=== PATIENT | male | born 1995 | race Caucasian/White ===

== ENCOUNTER 2016-08-19 21:19 | Emergency (ER) ==
[2016-08-19 21:26] VITALS: BP 131/86
[2016-08-19] MEDS ORDERED: ATIVAN IM ONE (23:02)
--- NOTE | 2016-08-19 23:09 | PROVIDER DOCUMENTATION ---
HPI-General Adult - General Chief Complaint: Anxiety Stated Complaint: GENERAL, "HEART HURTS" Time Seen by Provider: 08/19/16 22:56 Source: patient Allergies/Adverse Reactions: Patient Allergies Allergy/AdvReac Type Severity Reaction Status Date / Time No Known Allergies Allergy Verified 08/19/16 21:30 Home Medications: Home Medication List Medication Instructions Recorded Confirmed Last Taken Type No Home Medications 08/19/16 08/19/16 Unknown History - History of Present Illness -Gen Adult Nature of Presenting Problems: Pt. is 20 yom that presents with c/o hurting in his heart. Pt. reports he has never been diagnosed with anxiety, but thinks he has it. Pt. denies any N/V or fever. Pt. states no SOB but reports he is taking deep breaths. Location of Pain/Injury: reports: chest. denies: head, face, mouth, neck, upper extremity, hand(s), abdomen, back, pelvis, genitalia, lower extremity, feet, upper body, lower body, generalized Pain Radiation: reports: no radiation Quality of Pain: reports: aching. denies: burning, cramping, dull, fullness, indigestion, pressure, sharp, stabbing, tearing, throbbing, tightness Severity: reports: moderate. denies: mild, severe Onset/Duration: reports: gradual Timing: reports: still present. denies: improving, gone now, resolved prior to arrival, intermittent, constant, changing over time, getting worse Context/Activities at Onset: reports: none. denies: recent emotional stress, recent physical stress, recent trauma history, possible bad food, cold exposure , out of country travel Modifying Factors: improves with: nothing Associated Symptoms: reports: anxiety, chest pain. denies: arm pain, back/neck pain, constipation, cough, diaphoresis, diarrhea, dizziness, EENT symptoms, fatigue, fever/chills, genitourinary problems, headaches, heartburn, joint pain , loss of appetite, malaise, muscle aches, sinus congestion/drainage, nausea, rash, seizure, shortness of breath, sensory/motor loss, pain with inspiration, swelling/mass in abdomen, syncope, vomiting, weakness, trouble walking Similar Symptoms Previously?: Yes Recently seen or treated by another doctor?: No Review of Systems - Adult - REVIEW OF SYSTEMS - ADULT Constitutional: reports: see HPI. denies: chills, fever, fatique Eyes: reports: see HPI. denies: discharge, blurred vision, double vision Ears, Nose, Mouth & Throat: reports: see HPI. denies: ear pain, hearing loss, sinus problem, nose pain, loose teeth, mouth/dental pain, throat pain, throat swelling Cardiovascular: reports: see HPI. denies: chest pain, irregular heart rate, orthopnea, syncope Respiratory: reports: see HPI, other (hyperventilation). denies: chronic cough , cough, dyspnea on exertion, pleurisy, shortness of breath, wheezing Gastrointestinal: reports: see HPI. denies: abdominal pain, hematemesis, diarrhea, nausea, vomiting Genitourinary: reports: see HPI. denies: dysuria, discharge, hematuria, hesitency, urgency Musculoskeletal: reports: see HPI. denies: bone pain, back pain, joint pain, joint swelling, muscle aches, neck pain Integumentary: reports: see HPI. denies: hives, itching, rash, skin thickening Neurological: reports: see HPI. denies: ataxia, dizziness/vertigo, headache/ migraines, numbness, seizure, tremors Psychiatric: reports: see HPI, anxiety. denies: depression, emotional problems , insomnia, panic attacks, suicidal thoughts Past History - Adult - PAST MEDICAL HISTORY-ADULT Review of Records: reports: Old Records Reviewed, Nursing Assessment Review, Medications Reviewed, Social history reviewed & non-contributory. - IMMUNIZATION STATUS Childhood Immunizations: See Nurse Assessment Flu Vaccine: See Nurse Assessment - FAMILY HISTORY Family History: reviewed, not pertinent - SOCIAL HISTORY Smoking: cigarettes, greater than 1 pack/day Provider spent 3-5 mins advising pt. on dangers of tobacco.: Discussed the need to stop smoking. Physical Exam-General - PHYSICAL EXAM-ADULT Initial Vital Signs Reviewed: Yes - CONSTITUTIONAL General Appearance: alert, mild distress, thin. negative: obese, anxious, lethargic, slow to respond, obtunded, combative - EYES Eyes: PERRL/EOMI, pink conjunctivae. negative: conjuctival exudate, scleral icterus, subconjunctival hemorrhage - HEAD, EARS, NOSE, MOUTH & THROAT HENMT: normocephalic/atraumatic, moist mucous membranes. negative: angioedema, frontal tenderness, maxillary tenderness - NECK Neck: non-tender, full range of motion, supple, normal inspection. negative: lymphadenopathy, trachial deviation, thyromegaly - RESPIRATORY Respiratory: lungs clear, normal breath sounds, increased rate. negative: crackles, rales, rhonchi, stridor, wheezing - CARDIOVASCULAR Cardiovascular: normal peripheral pulses, regular rate, rhythm, no edema, no JVD , no murmur. negative: extra beats, friction rub, irregularly irregular - CHEST (BREASTS) Chest/Breast: deferred - GASTROINTESTINAL (ABDOMEN) Abdominal Exam: normal bowel sounds, non tender, soft. negative: distended, guarding, rigid, rebound, tenderness, hernia, mass - GENITOURINARY Male Genitalia: deferred Rectal Exam: deferred Hemoccult Exam: deferred - LYMPHATIC Lymphatic: no adenopathy. negative: axilla node tender, cervical node tenderness - MUSCULOSKELETAL Back Exam: normal inspection, no CVA tenderness, no vertebral tenderness. negative: ecchymosis, swelling, vertebral tenderness Extremity: normal range of motion, non-tender, normal gait, normal inspection. negative: deformity, erythema, inflammation, swelling, tenderness Peripheral Pulses: radial (R): 2+, radial (L): 2+ - SKIN Integumentary: normal color, normal turgor, warm/dry. negative: cyanosis, diaphoresis, ecchymosis, erythema, jaundice, mottled, pallor, petechiae, purpura , rash, swelling, tenderness - NEUROLOGIC Neurologic: grossly normal, no motor/sensory deficits. negative: aphasia, facial droop, focal weakness, motor weakness, sensory deficit - PSYCHIATRIC Psych/Mental Status: normal mood/affect, normal thought content, normal thought process, oriented x 3, anxious, tearful. negative: paranoid Progress - PLAN OF CARE/RESULTS Progress/Plan/Lab Results: Pt. decided he wanted to leave and states he is going to [place]. The patient left the building. Vital Signs Temp Pulse Resp BP Pulse Ox 08/19/16 21:22 97.7 F 88 18 131/86 100 No Known Allergies Allergy (Verified 08/19/16 21:30) No Home Medications 08/19/16 Orders Category Date Time Status Lorazepam [Ativan] Med 08/19/16 23:02 Discontinued 2 mg IM NOW ONE Departure - Departure Time of Disposition Order: 23:14 DIAGNOSIS: Anxiety Disposition: ELOPEMENT 07 Certified Medical Emergency: Emergent Condition: Stable Referrals: None,PCP [Primary Care Provider] - Attestation - Physician/ DIANE Attestation Patient care was provided by Advanced Practice Provider:: Yes Advanced Practice Provider:: Carlene Chamorro Advanced Practice Provider documentation review:: The Mid-level provider documentation, treatment plan and medical decision making was reviewed by the physician who agrees with all treatment and medical decision making by the MLP.
== END 2016-08-19 23:16 | disposition left against medical advice (07) ==
LOC: ED 21:19
DX: F41.9 Anxiety disorder, unspecified (principal); R07.9 Chest pain, unspecified; R06.4 Hyperventilation; F17.210 Nicotine dependence, cigarettes, uncomplicated; Z71.6 Tobacco abuse counseling

== ENCOUNTER 2016-08-19 23:30 | Emergency (ER) ==
[2016-08-20 00:43] LABS: UR AMPHETAMINES QUAL NONE DETECTED (NONE DETECT); UR BARBITUATES QUAL NONE DETECTED (NONE DETECT); UR BENZODIAZEPIN QUAL NONE DETECTED (NONE DETECT); UR CANNABINOIDS QUAL NONE DETECTED (NONE DETECT); UR COCAINE QUAL NONE DETECTED (NONE DETECT); UR MDMA QUAL NONE DETECTED (NONE DETECT); UR METHADONE QUAL NONE DETECTED (NONE DETECT); UR METHAMPHETAMINE QUAL NONE DETECTED (NONE DETECT); UR OPIATES QUAL NONE DETECTED (NONE DETECT); UR OXYCODONE QUAL NONE DETECTED (NONE DETECT); UR PCP QUAL NONE DETECTED (NONE DETECT); UR TCA QUAL NONE DETECTED (NONE DETECT)
[2016-08-20] MEDS ORDERED: ASPIRIN PO STA (00:50)
--- NOTE | 2016-08-20 01:03 | PROVIDER DOCUMENTATION ---
HPI-Chest Pain <Mario Sawyer - Last Filed: 08/20/16 01:41> - General Source: patient, family <Diamond Bauer - Last Filed: 08/22/16 16:49> - General Chief Complaint: Chest Pain Stated Complaint: CHEST PAIN,DIZZY Time Seen by Provider: 08/19/16 23:47 Allergies/Adverse Reactions: Patient Allergies Allergy/AdvReac Type Severity Reaction Status Date / Time No Known Allergies Allergy Verified 08/19/16 21:30 Home Medications: Home Medication List Medication Instructions Recorded Confirmed Last Taken Type Acetaminophen/Diphenhydramine 1 each PO Q6H PRN PRN #14 tablet 08/20/16 Unknown Rx [Percogesic Extra Str Caplet] - History of Present Illness-CP Nature of Presenting Problem: 20 y/o WM presents to ED with c/o CP x 4 hours. Pt states started at home while sleeping. Reports CP in L anterior chest. Denies any SOB, radiation, numbness/tingling. Denies any medications given at home, hx of cardiac problems , recent URI, positional discomfort. States hx of anxiety. Denies any N/V/D/C , abd. pain. Was at ED, but after 2 hours, came here. (Diamond Bauer ) Review of Systems - Adult - REVIEW OF SYSTEMS - ADULT Constitutional: reports: no symptoms reported. denies: chills, fever Eyes: reports: no symptoms reported. denies: blurred vision, double vision Ears, Nose, Mouth & Throat: reports: no symptoms reported. denies: ear pain, nose pain Cardiovascular: reports: see HPI, chest pain. denies: palpitations Respiratory: reports: no symptoms reported. denies: dyspnea on exertion, shortness of breath Gastrointestinal: reports: no symptoms reported. denies: abdominal pain, nausea , vomiting Genitourinary: reports: no symptoms reported. denies: dysuria, frequency Musculoskeletal: reports: no symptoms reported. denies: joint pain, joint swelling Integumentary: reports: no symptoms reported. denies: nail changes, rash Neurological: reports: no symptoms reported. denies: numbness, paresthesia Psychiatric: reports: no symptoms reported Endocrine: reports: no symptoms reported. denies: cold intolerance, heat intolerance Hematologic/Lymphatic: reports: no symptoms reported. denies: easy bruising, prolonged bleeding Allergic/Immunologic: reports: no symptoms reported All Other Systems: Reviewed and Negative <Diamond Bauer. - Last Filed: 08/22/16 16:49> Past History - Adult - PAST MEDICAL HISTORY-ADULT Review of Records: reports: Nursing Assessment Review, Medications Reviewed - IMMUNIZATION STATUS Childhood Immunizations: See Nurse Assessment Flu Vaccine: See Nurse Assessment - FAMILY HISTORY Family History: reviewed, not pertinent <Diamond Bauer. - Last Filed: 08/22/16 16:49> Physical Exam-General - PHYSICAL EXAM-ADULT Initial Vital Signs Reviewed: Yes - CONSTITUTIONAL General Appearance: alert, mild distress, thin - EYES Eyes: pink conjunctivae - HEAD, EARS, NOSE, MOUTH & THROAT HENMT: normocephalic/atraumatic, moist mucous membranes - NECK Neck: normal inspection - RESPIRATORY Respiratory: chest non-tender, lungs clear, normal breath sounds, no respiratory distress, no accessory muscle use. negative: crackles, rales, rhonchi, stridor, wheezing, pain on inspiration, decreased rate, increased rate - CARDIOVASCULAR Cardiovascular: regular rate, rhythm. negative: bradycardia, tachycardia - GASTROINTESTINAL (ABDOMEN) Abdominal Exam: normal bowel sounds, non tender, soft. negative: distended, guarding, rigid, rebound - MUSCULOSKELETAL Back Exam: normal inspection Extremity: normal gait - SKIN Integumentary: normal color, normal turgor, warm/dry, rash (noted to anterior chest and neck; appears fungal in nature.) - NEUROLOGIC Neurologic: negative: aphasia, motor weakness, sensory deficit - PSYCHIATRIC Psych/Mental Status: normal mood/affect, normal thought content, normal thought process, oriented x 3 <Diamond Bauer. - Last Filed: 08/22/16 16:49> Progress - EKG 1 Time of EKG reading by physician:: 00:18 EKG Read and Signed by:: Paramjit Cruz EKG Interpretation (*Must complete 3 of following elements*): Abnormal Rate: 58 Rhythm: SINUS BRADYCARDIA [place]: right QRS: normal NH Interval: normal <Mario Sawyer - Last Filed: 08/20/16 01:41> - XRAY 1 XRAY Study: Chest Impression: Normal XRAY Interpretation: No acute findings <Diamond Bauer. - Last Filed: 08/22/16 16:49> - PLAN OF CARE/RESULTS Progress/Plan/Lab Results: Laboratory Tests 08/19/16 08/20/16 08/20/16 23:55 01:05 01:05 WBC RBC Hgb Hct MCV MCH MCHC RDW Std Deviation Plt Count MPV Immature Gran % (Auto) Neut % (Auto) Lymph % (Auto) [place] % (Auto) Eos % (Auto) Baso % (Auto) Immature Gran # (Auto) Neut # (Auto) Lymph # (Auto) [place] # (Auto) Eos # (Auto) Baso # (Auto) PT INR APTT (Factor Assay) Sodium 141 Potassium 3.6 Chloride 103 Carbon Dioxide 26 Anion Gap 12 BUN 8 Creatinine 0.7 Estimated GFR/1.73 m2 > 60 BUN/Creatinine Ratio 11 Glucose 101 Calculated Osmolality 280 Calcium 9.2 Magnesium 1.8 Total Bilirubin 0.60 AST 21 ALT 12 Alkaline Phosphatase 73 Creatine Kinase 185 Troponin T < 0.010 [id number]-[id number] Pept Total Protein 6.9 Albumin 4.8 Globulin 2.0 Albumin/Globulin Ratio 2.0 Urine Opiates Screen NONE DETECTED Ur Oxycodone Screen NONE DETECTED Urine Methadone Screen NONE DETECTED Ur Barbituates Screen NONE DETECTED Ur Tricyclics Screen NONE DETECTED Ur Phencyclidine Scrn NONE DETECTED Ur Amphetamines Screen NONE DETECTED U Methamphetamines Scrn NONE DETECTED Urine MDMA Screen NONE DETECTED U Benzodiazepines Scrn NONE DETECTED Urine Cocaine Screen NONE DETECTED U Cannabinoids Screen NONE DETECTED 08/20/16 08/20/16 08/20/16 01:05 01:05 01:05 WBC 6.05 RBC 4.47 L Hgb 14.7 Hct 40.7 L MCV 91.1 MCH 32.9 H MCHC 36.1 RDW Std Deviation 11.9 Plt Count 230 MPV 9.5 Immature Gran % (Auto) 0.2 Neut % (Auto) 51.5 Lymph % (Auto) 37.4 [place] % (Auto) 7.9 Eos % (Auto) 2.5 Baso % (Auto) 0.5 Immature Gran # (Auto) 0.01 Neut # (Auto) 3.12 Lymph # (Auto) 2.26 [place] # (Auto) 0.48 Eos # (Auto) 0.15 Baso # (Auto) 0.03 PT 13.3 INR 0.98 APTT (Factor Assay) 28.7 Sodium Potassium Chloride Carbon Dioxide Anion Gap BUN Creatinine Estimated GFR/1.73 m2 BUN/Creatinine Ratio Glucose Calculated Osmolality Calcium Magnesium Total Bilirubin AST ALT Alkaline Phosphatase Creatine Kinase Troponin T [id number]-Mfvznjonrbm Pept 12 Total Protein Albumin Globulin Albumin/Globulin Ratio Urine Opiates Screen Ur Oxycodone Screen Urine Methadone Screen Ur Barbituates Screen Ur Tricyclics Screen Ur Phencyclidine Scrn Ur Amphetamines Screen U Methamphetamines Scrn Urine MDMA Screen U Benzodiazepines Scrn Urine Cocaine Screen U Cannabinoids Screen Orders Category Date Time Status CHEST-2 VIEWS [RAD] Stat Exams 08/20/16 00:00 Completed CBC WITH ELECTRONIC DIFF [HEME] Stat Lab 08/20/16 01:05 Completed CK PROFILE [SP CHEM] Stat Lab 08/20/16 01:05 Completed COMPREHENSIVE METABOLIC PANEL [CHEM] Stat Lab 08/20/16 01:05 Completed MAGNESIUM [CHEM] Stat Lab 08/20/16 01:05 Completed PRO B-NATRIURETIC PEPTIDE Stat Lab 08/20/16 01:05 Completed PROTIME WITH INR PL [COAG] Stat Lab 08/20/16 01:[address] [COAG] Stat Lab 08/20/16 01:05 Completed TROPONIN T Stat Lab 08/20/16 01:05 Completed URINE DRUG SCREEN PL Stat Lab 08/20/16 00:13 Completed Aspirin Med 08/20/16 00:50 Discontinued 325 mg PO STAT STA Lorazepam [Ativan] Med 08/20/16 01:41 Discontinued 1 mg PO NOW ONE EKG [EKG] Routine Ther 08/20/16 Draft Vital Signs Temp Pulse Resp BP Pulse Ox 08/20/16 02:43 97.7 F 64 18 115/77 96 08/19/16 23:33 98.7 F 82 18 111/75 100 No Known Allergies Allergy (Verified 08/19/16 21:30) Acetaminophen/Diphenhydramine [Percogesic Extra Str Caplet] 1 each PO Q6H PRN PRN #14 tablet 08/20/16 CERVICALGIA (08/19/16) CHEST PAIN, UNSPECIFIED (08/19/16) ABNORMAL ELECTROCARDIOGRAM [ECG] [EKG] (08/19/16) (Diamond Bauer) Departure <Mario Sawyer - Last Filed: 08/20/16 01:41> - Departure Time of Disposition Order: 01:45 Certified Medical Emergency: Emergent <Diamond Bauer - Last Filed: 08/22/16 16:49> - Departure DIAGNOSIS: Chest pain Qualifiers: Chest pain type: unspecified Qualified Code(s): R07.9 - Chest pain, unspecified Disposition: HOME 01 Condition: Stable Additional Instructions: Follow up with specialist for further management. Take medications as directed. ED Follow Up Instructions: You have been treated by a care provider in the Emergency Department. These instructions are being provided to you so you can have an understanding of how to care for yourself upon discharge. Upon discharge from the Emergency Department, you are responsible for making arrangements for follow-up care by a physician of your choice. Take all prescribed medications as directed. Return to the Emergency Department immediately for any new or worsening symptoms. You may call the Physician Referral phone number at [phone] to obtain a list of Physicians who are taking new patients. Prescriptions: Acetaminophen/Diphenhydramine [Percogesic Extra Str Caplet] 1 each PO Q6H PRN PRN #14 tablet PRN Reason: Pain Referrals: None,PCP [Primary Care Provider] - Kirill Sandoval MD [STAFF PHYSICIAN] - Forms: Return to School/Parent Work Instructions: Acetaminophen; Diphenhydramine oral caplet, capsule, or tablet, Nonspecific Chest Pain, [id number] Attestation - Physician/ DIANE Attestation Patient care was provided by Advanced Practice Provider:: Yes Advanced Practice Provider:: Diamond Bauer Advanced Practice Provider documentation review:: The Mid-level provider documentation, treatment plan and medical decision making was reviewed by the physician who agrees with all treatment and medical decision making by the MLP. <Diamond Bauer - Last Filed: 08/22/16 16:49> Physician Attestation
[2016-08-20 01:12] LABS: MANUAL DIFF NEEDED? NO
[2016-08-20 01:20] LABS: BASO% 0.5 % (0.0-0.8); EOS# 0.15 X1000 (0.0-0.7); EOS% 2.5 % (0.0-10.0); HEMATOCRIT 40.7 % (42.0-52.0); HEMOGLOBIN 14.7 g/dL (14.0-18.0); IMM GRAN# 0.01 X1000 (0.0-0.04); IMM GRAN% 0.2 % (0.0-0.5); LYMPH# 2.26 X1000 (1.2-3.4); LYMPH% 37.4 % (20.5-51.1); MCH 32.9 PG (27-31); MCHC 36.1 g/dL (33-37); MCV 91.1 FL (81-99); MONO# 0.48 X1000 (0.11-0.59); MONO% 7.9 % (1.7-9.3); MPV 9.5 FL (7.4-10.4); NEUT% 51.5 % (42.2-75.2); PLT 230 X1000 (130-400); RBC 4.47 XMIL (4.7-6.1)
[2016-08-20 01:39] LABS: AGAP 12; ALBUMIN 4.8 g/dL (3.5-5.0); ALKALINE PHOSPHATASE 73 U/L (32-122); BUN 8 mg/dL (8-22); CALCIUM 9.2 mg/dL (8.8-10.2); CHLORIDE 103 mmol/L (98-107); CK PROFILE 185 U/L (24-204); COSMO 280; GOT 21 U/L (10-34); GPT 12 U/L (10-44); MAGNESIUM 1.8 mg/dL (1.5-2.7); POTASSIUM 3.6 mmol/L (3.5-5.1); SODIUM 141 mmol/L (136-145); TCO2 26 mmol/L (25-35); TOTAL PROTEIN 6.9 g/dL (6.3-8.3)
[2016-08-20] MEDS ORDERED: ATIVAN PO ONE (01:41)
[2016-08-20 01:42] LABS: INR 0.98 (0.86-1.15); PROTIME 13.3 Seconds (12.1-15.5)
[2016-08-20 01:43] LABS: PTT PL 28.7 Seconds (22.6-43.9)
--- NOTE | 2016-08-20 01:59 | EKG Report ---
Test Performed on : 08/20/2016 00:17:31 AM Test Reason : CP Blood Pressure : / mmHG Vent. Rate : 058 BPM Atrial Rate : 058 BPM P-R Int : 116 ms QRS Dur : 088 ms QT Int : 394 ms P-R-T Axes : 035 094 075 degrees QTc Int : 386 ms Sinus bradycardia. Rightward axis Borderline ECG No previous ECGs available Unconfirmed Result
[2016-08-20 02:46] VITALS: BP 115/77
--- NOTE | 2016-08-20 08:06 | Diag Imaging Result Document ---
PROCEDURE NAME: CHEST-2 VIEWS - 08/20/2016 FRONTAL AND LATERAL CHEST, TWO VIEWS: FINDINGS: The lungs are hyperexpanded. The heart is not enlarged. The vessels are not distended. No pneumonia. No pleural effusions. No free air beneath the diaphragm. IMPRESSION: The lungs are hyperexpanded, otherwise negative exam.
== END 2016-08-20 02:43 | disposition home or self-care (01) ==
LOC: P.ED 23:30
DX: R07.9 Chest pain, unspecified (principal); M54.2 Cervicalgia; R94.31 Abnormal electrocardiogram [ECG] [EKG]
CPT/HCPCS: 71020; 80053; 80305; 82550; 83735; 83880; 84484; 85025; 85610; 85730; 93005; 99284